=== PATIENT | male | born 1935 | race Caucasian/White ===

== ENCOUNTER 2019-06-27 16:07 | Inpatient (IN) | payer MEDICARE | END 2019-06-29 15:40 | disposition home or self-care (01) | LOC: EDH 16:07 → EDHIP 20:26 → 4CH 23:56 | DX: I82.401 Acute embolism and thrombosis of unspecified deep veins of right lower extremity (principal); A04.72 Enterocolitis due to Clostridium difficile, not specified as recurrent; M54.41 Lumbago with sciatica, right side ==